=== PATIENT | female | born 1995 | race Caucasian/White ===

== ENCOUNTER 2019-01-06 16:06 | Emergency (ER) | payer OTHER ==
--- NOTE | 2019-01-06 16:20 | PDOC ---
Rapid Medical Evaluation Chief Complaint: Back Pain Time Seen by Provider: 01/06/19 16:17 Medical Evaluation: Allergies Allergy/AdvReac Type Severity Reaction Status Date / Time No Known Allergies Allergy Verified 02/17/16 01:13 01/06/19 16:17 I have performed a brief in-person evaluation of this patient. The patient presents with a chief complaint of: back pain since last night, hx of R renal stone Pertinent physical exam findings:nad I have ordered the following:u preg, CBC, CMP, UA and cx US The patient will proceed to the ED for further evaluation. 01/06/19 16:20 Discharge Disposition - Diagnosis Back pain - Referrals - Patient Instructions - Post Discharge Activity
[2019-01-06 16:30] VITALS: BP 121/64; PULSE 82; TEMP 99; BMI 29.6
[2019-01-06 16:43] LABS: BASO % 0.3 % (0-2.0); EOS % 2.7 % (0-4.5); HEMATOCRIT 39.2 % (32.4-45.2); LYMPH % 37.2 % (8-40); MCH 27.4 pg (25.7-33.7); MCHC 33.2 g/dl (32.0-36.0); MEAN CELL VOLUME 82.5 fl (80-96); MEAN PLT VOLUME 7.7 fl (7.5-11.1); MONO % 7.3 % (3.8-10.2); NEUT % 52.5 % (42.8-82.8); PLATELET COUNT 270 K/MM3 (134-434); RBC 4.75 M/mm3 (3.60-5.2); RDW 14.4 % (11.6-15.6); WHITE BLOOD COUNT 8.5 K/mm3 (4.0-10.0)
[2019-01-06 17:02] LABS: HCG,QUALITATIVE URINE Negative
[2019-01-06 17:11] LABS: ALBUMIN 3.7 g/dl (3.4-5.0); ALK PHOS 60 U/L (45-117); ANION GAP 6 MMOL/L (8-16); BILIRUBIN,TOTAL 0.2 mg/dL (0.2-1); BLOOD UREA NITROGEN 13 mg/dL (7-18); CHLORIDE 106 mmol/L (98-107); CO2 28 mmol/L (21-32); CREATININE 0.6 mg/dL (0.55-1.3); GLUCOSE,RANDOM 101 mg/dL (74-106); POTASSIUM 3.9 mmol/L (3.5-5.1); SGOT/AST 19 U/L (15-37); SGPT/ALT 25 U/L (13-61); SODIUM 140 mmol/L (136-145)
[2019-01-06] MEDS ORDERED: KETOROLAC TROMETHAMINE 30 MG/1 ML VIAL IVPUSH ONE (17:31)
[2019-01-06 17:35] LABS: URINE APPEARANCE CLEAR; URINE BILIRUBIN NEGATIVE (NEGATIVE); URINE COLOR YELLOW; URINE GLUCOSE (UA) NEGATIVE (NEGATIVE); URINE KETONE NEGATIVE (NEGATIVE); URINE LEUK ESTERASE NEGATIVE (NEGATIVE); URINE NITRITE NEGATIVE (NEGATIVE); URINE PROTEIN NEGATIVE (NEGATIVE); URINE UROBILINOGEN 0.2 mg/dL (0.2-1.0)
[2019-01-06] MEDS ORDERED: KETOROLAC TROMETHAMINE 30 MG/1 ML VIAL ONE (17:36)
--- NOTE | 2019-01-06 17:37 | PDOC ---
History of Present Illness - General Chief Complaint: Back Pain Stated Complaint: LOWER BACK PAIN Time Seen by Provider: 01/06/19 16:17 History Source: Patient - History of Present Illness Severity: moderate Associated Symptoms: denies: fever/chills, nausea/vomiting Past History - Past Medical History Allergies/Adverse Reactions: Allergies Allergy/AdvReac Type Severity Reaction Status Date / Time No Known Allergies Allergy Verified 02/17/16 01:13 Home Medications: Ambulatory Orders Ferrous Sulfate 325 mg PO DAILY 02/17/16 Vitamins (Sjr) - 1 tab PO DAILY 02/17/16 Cyclobenzaprine HCl [Flexeril 10 mg] 10 mg PO TID #9 tablet 01/06/19 Ibuprofen [Motrin -] 800 mg PO Q6H #30 tablet 01/06/19 Asthma: No Cancer: No Cardiac Disorders: No COPD: No Diabetes: No HTN: No Seizures: No Thyroid Disease: No - Suicide/Smoking/Psychosocial Hx Smoking History: Never smoked Have you smoked in the past 12 months: No Information on smoking cessation initiated: No Hx Alcohol Use: No Drug/Substance Use Hx: No Substance Use Type: None Hx Substance Use Treatment: No Review of Systems - Review of Systems Constitutional: No: Chills, Fever ABD/GI: No: Constipated, Diarrhea, Nausea, Vomiting, Abdominal cramping : Yes: Flank Pain. No: Dysuria, Hematuria Musculoskeletal: Yes: Back Pain Neurological: No: Numbness, Tingling, Weakness *Physical Exam - Vital Signs Last Vital Signs Temp Pulse Resp BP Pulse Ox 99.0 F 82 18 121/64 100 01/06/19 16:19 01/06/19 16:19 01/06/19 16:19 01/06/19 16:19 01/06/19 16:19 - Physical Exam General Appearance: Yes: Appropriately Dressed. No: Apparent Distress HEENT: positive: Normal Voice Neck: positive: Supple Respiratory/Chest: negative: Respiratory Distress Gastrointestinal/Abdominal: positive: Normal Bowel Sounds, Soft. negative: Tender, Distended, Guarding, Rebound Musculoskeletal: positive: Vertebral Tenderness (to mid and R lower back). negative: CVA Tenderness Integumentary: positive: Dry, Warm Neurologic: positive: Fully Oriented, Alert, Normal Mood/Affect ED Treatment Course - LABORATORY CBC & Chemistry Diagram: 01/06/19 16:32 01/06/19 16:32 - ADDITIONAL ORDERS Additional order review: Laboratory Results 01/06/19 01/06/19 16:32 16:30 Sodium 140 Potassium 3.9 Chloride 106 Carbon Dioxide 28 Anion Gap 6 L BUN 13 Creatinine 0.6 Creat Clearance w eGFR 122.82 Random Glucose 101 Calcium 9.0 Total Bilirubin 0.2 AST 19 ALT 25 Alkaline Phosphatase 60 Total Protein 7.0 Albumin 3.7 Urine HCG, Qual Negative 01/06/19 16:32 RBC 4.75 MCV 82.5 MCHC 33.2 RDW 14.4 MPV 7.7 Neutrophils % 52.5 D Lymphocytes % 37.2 D Monocytes % 7.3 Eosinophils % 2.7 D Basophils % 0.3 - RADIOLOGY Radiology Studies Ordered: Category Date Time Status ABDOMEN & PELVIS CT W/O CONTR [CT] Stat CT Scan 01/06/19 17:31 Ordered Medical Decision Making - Medical Decision Making 01/06/19 17:32 23 yo F, h/o chronic lower back pain, s/p PT in the past, states she was told pain was "muscular" then, no spinal imaging in past, here with mid lower back pain radiating to R flank that started today while in the shower. Pain sharp, constant and possibly worse w/ movement. Has not taken anything for pain. Patient states this is different from her usual back pain. No recent trauma. No nausea, vomiting, fever, chills, dysuria or hematuria. Denies any abdominal pain. Patient states she was told in the past that she had kidney stones on an ultrasound, but has never had to go to the ER for renal colic see exam Renal colic vs m/l MSK pain -pain control -labs -CT -reassess 01/06/19 17:36 01/06/19 18:26 Labs wnl. US read as no e/o stone or other abnl. Pain improved w/ meds. Dc w/ pain control and PMD f/u 04 *DC/Admit/Observation/Transfer Diagnosis at time of Disposition: Back pain Qualifiers: Back pain location: low back pain Chronicity: acute Back pain laterality: unspecified Sciatica presence: without sciatica Qualified Code(s): M54.5 - Low back pain - Discharge Dispostion Disposition: HOME Condition at time of disposition: Improved - Prescriptions Prescriptions: Cyclobenzaprine HCl [Flexeril 10 mg] 10 mg PO TID #9 tablet Ibuprofen [Motrin -] 800 mg PO Q6H #30 tablet - Referrals - Patient Instructions Printed Discharge Instructions: DI for Low Back Pain Additional Instructions: Take medications as prescribed and follow-up with your PMD for further evaluation of your back pain - Post Discharge Activity Forms/Work/School Notes: Back to Work
[2019-01-06] MEDS ORDERED: ACETAMINOPHEN 1000 MG/100 ML VIAL (NON FORMULARY) IVPB ONE (18:12)
[2019-01-06] MEDS ORDERED: ACETAMINOPHEN INJECTION 100 ML IVPB ONE (18:19)
== END 2019-01-06 18:38 | disposition home or self-care (01) ==
LOC: JER 16:06
PROC: 3E033NZ Introduction of Analgesics, Hypnotics, Sedatives into Peripheral Vein, Percutaneous Approach (ICD-10-PCS; principal; 2019-01-06)
PROC: 3E0333Z Introduction of Anti-inflammatory into Peripheral Vein, Percutaneous Approach (ICD-10-PCS; 2019-01-06)
DX: M54.5 Low back pain (principal); G89.29 Other chronic pain
CPT/HCPCS: 36415; 76775-TC; 80053; 81003; 84703; 85025; 87086; 99283-25; J0131

== ENCOUNTER 2019-12-29 09:56 | Day surgery (SDC) | payer OTHER ==
[2019-12-29] MEDS ORDERED: ONDANSETRON 4 MG/2 ML VIAL IVPUSH ONE (10:49)
[2019-12-29] MEDS ORDERED: ONDANSETRON 4 MG/2 ML VIAL ONE ×3 (11:00→18:17)
[2019-12-29 11:41] LABS: BASO % 0.1 % (0-2.0); HEMATOCRIT 40.4 % (32.4-45.2); HEMOGLOBIN 13.6 GM/dL (10.7-15.3); LYMPH % 7.4 % (8-40); MCH 27.7 pg (25.7-33.7); MCHC 33.7 g/dl (32.0-36.0); MEAN CELL VOLUME 82.3 fl (80-96); MEAN PLT VOLUME 7.9 fl (7.5-11.1); NEUT % 89.5 % (42.8-82.8); PLATELET COUNT 265 K/MM3 (134-434); RBC 4.91 M/mm3 (3.60-5.2); RDW 13.9 % (11.6-15.6); WHITE BLOOD COUNT 15.4 K/mm3 (4.0-10.0)
[2019-12-29 11:43] LABS: PH,URINE 6.5 (5.0-8.0); URINE APPEARANCE CLOUDY; URINE BILIRUBIN NEGATIVE (NEGATIVE); URINE COLOR YELLOW; URINE GLUCOSE (UA) NEGATIVE (NEGATIVE); URINE KETONE TRACE (NEGATIVE); URINE LEUK ESTERASE NEGATIVE (NEGATIVE); URINE NITRITE NEGATIVE (NEGATIVE); URINE PROTEIN TRACE (NEGATIVE); URINE UROBILINOGEN 0.2 mg/dL (0.2-1.0)
[2019-12-29 11:46] LABS: HCG,QUALITATIVE URINE Negative
--- NOTE | 2019-12-29 12:11 | PDOC ---
History of Present Illness - General Chief Complaint: Nausea/Vomiting Stated Complaint: LOWER ABD PAIN Time Seen by Provider: 12/29/19 10:12 - History of Present Illness Initial Comments: 12/29/19 11:32 CHIEF COMPLAINT: abdominal pain, vomiting HISTORY OF PRESENT ILLNESS: 24 yo F with no PMH presents to ED with vomiting and abdominal pain since yesterday. Patient reports persistent vomiting and "feels dehydrated." She denies any fever, cough, SOB, or other URI symptoms. Patient denies any travel, recent sick contacts. LMP "about a month ago, it should be coming soon." No recent travel or sick contacts. PAST MEDICAL HISTORY: Denies past medical history FAMILY HISTORY: Denies SOCIAL HISTORY:Denies tobacco, alcohol, illicit drug use. SURGICAL HISTORY: Denies ALLERGIES: No known drug allergies REVIEW OF SYSTEMS General/Constitutional: Denies fever or chills. Denies weakness, weight change. HEENT: Denies change in vision. Denies ear pain or discharge. Denies sore throat. Cardiovascular: Denies chest pain or shortness of breath. Respiratory: Denies cough, wheezing, or hemoptysis. Gastrointestinal: Vomiting and abdominal pain since last night. Denies rectal bleeding. Genitourinary: Denies dysuria, frequency, or change in urination. Musculoskeletal: Denies joint or muscle swelling or pain. Denies neck or back pain. Skin and breasts: Denies rash or easy bruising. Neurologic: Denies headache, vertigo, loss of consciousness, or loss of sen sation. Psychiatric: Denies depression or anxiety. PHYSICAL EXAM General Appearance: Well-appearing, appropriately dressed. No apparent distress, no intoxication. HEENT: EOMI, PERRLA, normal ENT inspection, normal voice, TMs normal, pharynx normal. No conjunctival pallor. No photophobia, scleral icterus. Neck: Supple. Trachea midline. No tenderness, rigidity, carotid bruit, stridor, lymphadenopathy, or thyromegaly. Respiratory/Chest: Lungs CTAB. No shortness of breath, chest tenderness, respiratory distress, accessory muscle use. No crackles, rales, rhonchi, stridor, wheezing, dullness Cardiovascular: RRR. S1, S2. No JVD, murmur, bradycardia, tachycardia. Vascular Pulses: Dorsalis-Pedis (R): 2+, Dorsalis-Pedis (L): 2+ Gastrointestinal/Abdominal: Diffuse abdominal tenderness, more localized to epigastrum. Normal bowel sounds. Abdomen soft, non-distended. No tenderness or rebound tenderness. No organomegaly, pulsatile mass, guarding, hernia, hepatomegaly, splenomegaly. Lymphatic: No adenopathy, tenderness. Musculoskeletal/Extremities: Normal inspection. FROM of all extremities, normal capillary refill. Pelvis Stable. No CVA tenderness. No tenderness to extremities, pedal edema, swelling, erythema or deformity. Integumentary: Appropriate color, dry, warm. No cyanosis, erythema, jaundice or rash Neurologic: bindery chief II-XII intact. Fully oriented, alert. Appropriate mood/affect. Motor strength 5/5. No appreciable EOM palsy, facial droop or sensory deficit. 12/29/19 14:44 Past History - Past Medical History Allergies/Adverse Reactions: Allergies Allergy/AdvReac Type Severity Reaction Status Date / Time No Known Allergies Allergy Verified 12/29/19 10:00 Home Medications: Ambulatory Orders NK [No Known Home Medication] 12/29/19 Asthma: No Cancer: No Cardiac Disorders: No COPD: No Diabetes: No HTN: No Seizures: No Thyroid Disease: No - Immunization History Immunization Up to Date: Yes - Psycho Social/Smoking Cessation Hx Smoking History: Never smoked Have you smoked in the past 12 months: No Information on smoking cessation initiated: No Hx Alcohol Use: No Drug/Substance Use Hx: No Substance Use Type: None Hx Substance Use Treatment: No *Physical Exam - Vital Signs Last Vital Signs Temp Pulse Resp BP Pulse Ox 97.9 F 72 19 120/72 99 12/29/19 09:58 12/29/19 09:58 12/29/19 09:58 12/29/19 09:58 12/29/19 09:58 ED Treatment Course - LABORATORY CBC & Chemistry Diagram: 12/29/19 11:05 12/29/19 11:05 - Medications Given in the ED: ED Medications Discontinued Medications Generic Name Dose Route Start Last Admin Trade Name Freq PRN Reason Stop Dose Admin Ondansetron HCl 4 mg 12/29/19 10:49 12/29/19 11:17 Zofran Injection IVPUSH 12/29/19 10:50 4 mg ONCE ONE Administration Medical Decision Making - Medical Decision Making 12/29/19 12:11 24 yo F with no PMH presents to ED with vomiting and abdominal pain since yesterday. -labs -zofran, IVF -CTAP 12/29/19 13:27 CTAP reveals acute appendicitis; pt also with left gonadal vein nonocclusive thrombosis. Spoke with surgeon Dr. Viera, patient to be admitted for appendectomy today. Patient will require anticoagulation post-op for gonadal vein thrombosis Spoke with PCP Josie to ensure patient has f/u post op, PCP states offices are open during COVID crisis and she will f/u with patient to ensure proper therapy. Discharge - Discharge Information Problems reviewed: Yes Clinical Impression/Diagnosis: Thrombosis of vein Appendicitis Qualifiers: Appendicitis type: acute appendicitis Acute appendicitis type: with localized peritonitis Appendicitis gangrene presence: without gangrene Appendicitis perforation presence: without perforation Appendicitis abscess presence: without abscess Qualified Code(s): K35.30 - Acute appendicitis with localized peritonitis, without perforation or gangrene - Admission Yes - Follow up/Referral - Patient Discharge Instructions - Post Discharge Activity
[2019-12-29 12:31] LABS: ALBUMIN 3.8 g/dl (3.4-5.0); BILIRUBIN,TOTAL 0.6 mg/dL (0.2-1); BLOOD UREA NITROGEN 12.2 mg/dL (7-18); CALCIUM 9.2 mg/dL (8.5-10.1); CREATININE 0.6 mg/dL (0.55-1.3); TOT PROT 7.4 g/dl (6.4-8.2)
[2019-12-29] MEDS ORDERED: KETOROLAC TROMETHAMINE 30 MG/1 ML VIAL IVPUSH ONE (13:04)
[2019-12-29] MEDS ORDERED: KETOROLAC TROMETHAMINE 30 MG/1 ML VIAL ONE ×2 (13:06→16:16)
--- NOTE | 2019-12-29 14:24 | PDOC ---
*Physical Exam - Vital Signs Last Vital Signs Temp Pulse Resp BP Pulse Ox 97.9 F 72 19 120/72 99 12/29/19 09:58 12/29/19 09:58 12/29/19 09:58 12/29/19 09:58 12/29/19 09:58 - Physical Exam 12/29/19 14:24 The patient was examined by [KALI dow] under my direct supervision. I personally evaluated the patient. I concur with the above findings and the plan of care. ED Treatment Course - LABORATORY CBC & Chemistry Diagram: 12/29/19 11:05 12/29/19 11:05 - ADDITIONAL ORDERS Additional order review: Laboratory Results 12/29/19 12/29/19 11:05 11:05 Sodium 139 Potassium 4.0 Chloride 106 Carbon Dioxide 27 Anion Gap 7 L BUN 12.2 Creatinine 0.6 Est GFR (CKD-EPI)AfAm 146.83 Est GFR (CKD-EPI)NonAf 126.68 Random Glucose 118 H Calcium 9.2 Total Bilirubin 0.6 AST 21 ALT 40 Alkaline Phosphatase 71 Total Protein 7.4 Albumin 3.8 Lipase 72 L Urine Color Yellow Urine Appearance Cloudy Urine pH 6.5 D Ur Specific [place] 1.028 Urine Protein Trace Urine Glucose (UA) Negative Urine Ketones Trace H Urine Blood Negative Urine Nitrite Negative Urine Bilirubin Negative Urine Urobilinogen 0.2 Ur Leukocyte Esterase Negative Urine HCG, Qual Negative 12/29/19 11:05 RBC 4.91 MCV 82.3 MCHC 33.7 RDW 13.9 MPV 7.9 Neutrophils % 89.5 H D Lymphocytes % 7.4 L D Monocytes % 3.0 L Eosinophils % 0.0 D Basophils % 0.1 - Medications Given in the ED: ED Medications Discontinued Medications Generic Name Dose Route Start Last Admin Trade Name Freq PRN Reason Stop Dose Admin Ketorolac Tromethamine 30 mg 12/29/19 13:04 12/29/19 13:10 Toradol Injection - IVPUSH 12/29/19 13:05 30 mg ONCE ONE Administration Ondansetron HCl 4 mg 12/29/19 10:49 12/29/19 11:17 Zofran Injection IVPUSH 12/29/19 10:50 4 mg ONCE ONE Administration Discharge - Discharge Information Problems reviewed: Yes Clinical Impression/Diagnosis: Thrombosis of vein Appendicitis Qualifiers: Appendicitis type: acute appendicitis Acute appendicitis type: with localized peritonitis Appendicitis gangrene presence: without gangrene Appendicitis perforation presence: without perforation Appendicitis abscess presence: without abscess Qualified Code(s): K35.30 - Acute appendicitis with localized peritonitis, without perforation or gangrene - Follow up/Referral - Patient Discharge Instructions - Post Discharge Activity
[2019-12-29] MEDS ORDERED: PIPERACILLIN/TAZOB 4.5 GM 4.5 GM in DEXTROSE 5%-WATER 100 ML IVPB ONE (14:39)
[2019-12-29] MEDS ORDERED: LACTATED RINGERS SOLUTION 1,000 ML/1,000 ML INFUS.BAG IV SCH ×2 (14:45→19:22)
[2019-12-29] MEDS ORDERED: PIPERACILLIN/TAZOB 4.5 GM 4.5 GM/100 ML BAG IVPB ONE (14:53)
[2019-12-29] MEDS ORDERED: PROPOFOL 20 ML ONE (16:15)
[2019-12-29] MEDS ORDERED: DEXAMETHASONE SOD PHOSPHATE 4 MG/1 ML VIAL ONE (16:16)
[2019-12-29] MEDS ORDERED: ROCURONIUM BROMIDE 50 MG/5 ML SYRINGE ONE (16:16)
[2019-12-29] MEDS ORDERED: MIDAZOLAM HCL 2 MG/2 ML SINGLE DOSE VIAL ONE (16:16)
[2019-12-29] MEDS ORDERED: LIDOCAINE HCL/PF 2% SDV 5ML VIAL ONE (16:16)
--- NOTE | 2019-12-29 16:17 | HP ---
Admitting History and Physical - Primary Care Physician PCP: Hollie Galindo - Admission Chief Complaint: epigastric and RLQ pain, N/V History of Present Illness: 24yo F with no sig PMH presented with epigastric pain beginning around 3pm yesterday after normal breakfast and lunch, though she hadn't been very hungry. Had coffee with bread and butter earlier in the day, a banana around 5pm, but later had RLQ pain/tenderness radiating to rest of abdomen as well, and multiple episodes of N/V. Overnight, she had alternating cold and hot feelings several t imes, and vomiting. By this morning, she felt a bit weak and dehydrated, with some minor urinary discomfort. Last normal, soft formed BM was yesterday, no diarrhea. Prior to this, she has not been otherwise feeling ill, no cough or cold, no fevers, no sick contacts, and 4yo daughter are well. In ER, she is somewhat dehydrated by labs, wbc 15, afebrile, and CT shows acute appendicitis without evidence of rupture, as well as left gonadal vein nonocclusive thrombosis. She has been given Zofran, Toradol, Zosyn and fluids, and is feeling better, though shearing machine tender in the RLQ. She is seen and examined in the ER. ER spoke with her PCP Dr. Galindo, who will follow her up to address the clot with anticoagulation, as well as a referral to hematology. History Source: Patient Limitations to Obtaining History: No Limitations - Past Medical History Cardiovascular: Yes: Other (valvular regurg - not sure which one, mild; tends to have low blood pressure) ...: No - Past Surgical History Past Surgical History: Yes: Tonsillectomy - Smoking History Smoking history: Never smoked Have you smoked in the past 12 months: No - Alcohol/Substance Use Hx Alcohol Use: Yes (occasional) History of Substance Use: reports: None - Social History Usual Living Arrangement: Yes: With Spouse ADL: Independent Occupation: [employer] home [employer], not currently working Home Medications - Allergies Allergies/Adverse Reactions: Allergies Allergy/AdvReac Type Severity Reaction Status Date / Time No Known Allergies Allergy Verified 12/29/19 10:00 - Home Medications Home Medications: Ambulatory Orders NK [No Known Home Medication] 12/29/19 Family Medical History Other Family History: mother with HTN, father with low blood pressure Review of Systems - Review of Systems Constitutional: reports: Chills, Fever (feeling hot and cold overnight, with hpi), Loss of Appetite Eyes: denies: Blurred Vision, Recent Change in Vision HENT: denies: Difficult Swallowing, Nasal Congestion, Throat Pain Neck: denies: Swollen Glands, Tenderness Cardiovascular: denies: Chest Pain, Palpitations Respiratory: denies: Cough, SOB Gastrointestinal: reports: Abdominal Pain (with hpi), Nausea (with hpi), Vomiting (with hpi). denies: Constipation, Diarrhea Genitourinary: reports: Dysuria (mild, today only, thought related to dehydration). denies: Burning Musculoskeletal: denies: Back Pain, Joint Pain, Muscle Pain Integumentary: denies: Change in Color, Rash Neurological: reports: Headache (when weather changes). denies: Dizziness Psychiatric: denies: Anxiety, Depression Physical Examination Vital Signs: Vital Signs Temperature 98.2 F 12/29/19 15:08 Pulse Rate 85 12/29/19 15:08 Respiratory Rate 18 12/29/19 15:08 Blood Pressure 107/72 12/29/19 15:08 O2 Sat by Pulse Oximetry (%) 100 12/29/19 15:08 Constitutional: Yes: No Distress, Calm, Obese Eyes: Yes: Conjunctiva Clear, EOM Intact HENT: Yes: Atraumatic, Normocephalic Neck: Yes: Supple, Trachea Midline Cardiovascular: Yes: Regular Rate and Rhythm Respiratory: Yes: Regular, CTA Bilaterally Gastrointestinal: Yes: Soft, Abdomen, Obese, Hypoactive Bowel Sounds, Tenderness (RLQ with referral to RLQ from left side and suprapubic, focal rebound but no guarding) ...Rectal Exam: Yes: Deferred Renal/: No: CVA Tenderness - Left, CVA Tenderness - Right Musculoskeletal: No: Back Pain, Joint Stiffness, Joint Swelling Extremities: No: Cool, Cyanosis Edema: No Peripheral Pulses WNL: Yes Integumentary: No: Jaundice, Rash Neurological: Yes: Alert, Oriented. No: Unsteady Gait Psychiatric: Yes: Alert, Oriented Labs: CBC, BMP 12/29/19 11:05 12/29/19 11:05 CMP Sodium 139 mmol/L (136-145) 12/29/19 11:05 Potassium 4.0 mmol/L (3.5-5.1) 12/29/19 11:05 Chloride 106 mmol/L (98-107) 12/29/19 11:05 Carbon Dioxide 27 mmol/L (21-32) 12/29/19 11:05 Anion Gap 7 MMOL/L (8-16) L 12/29/19 11:05 BUN 12.2 mg/dL (7-18) 12/29/19 11:05 Creatinine 0.6 mg/dL (0.55-1.3) 12/29/19 11:05 Est GFR (CKD-EPI)AfAm 146.83 12/29/19 11:05 Est GFR (CKD-EPI)NonAf 126.68 12/29/19 11:05 Random Glucose 118 mg/dL (74-106) H 12/29/19 11:05 Calcium 9.2 mg/dL (8.5-10.1) 12/29/19 11:05 Total Bilirubin 0.6 mg/dL (0.2-1) 12/29/19 11:05 AST 21 U/L (15-37) 12/29/19 11:05 ALT 40 U/L (13-61) 12/29/19 11:05 Alkaline Phosphatase 71 U/L (45-117) 12/29/19 11:05 Total Protein 7.4 g/dl (6.4-8.2) 12/29/19 11:05 Albumin 3.8 g/dl (3.4-5.0) 12/29/19 11:05 Lipase 72 U/L (73-393) L 12/29/19 11:05 Urine Test Results Urine Color Yellow 12/29/19 11:05 Urine Appearance Cloudy 12/29/19 11:05 Urine pH 6.5 (5.0-8.0) D 12/29/19 11:05 Ur Specific [place] 1.028 (1.010-1.035) 12/29/19 11:05 Urine Protein Trace (NEGATIVE) 12/29/19 11:05 Urine Glucose (UA) Negative (NEGATIVE) 12/29/19 11:05 Urine Ketones Trace (NEGATIVE) H 12/29/19 11:05 Urine Blood Negative (NEGATIVE) 12/29/19 11:05 Urine Nitrite Negative (NEGATIVE) 12/29/19 11:05 Urine Bilirubin Negative (NEGATIVE) 03/25/20 11:05 Ur Leukocyte Esterase Negative (NEGATIVE) 12/29/19 11:05 Imaging - Results Cat Scan: Report Reviewed (also mildly dilated L gonadal vein with nonocclusive filling defects, 1.7cm right ovarian cyst), Image Reviewed (appendix enlarged, inflamed in RLQ, no obstruction, no free air) Problem List - Problems (1) Acute appendicitis with localized peritonitis, without perforation, abscess, or gangrene Assessment/Plan: admit to surgery 23H/satellite NPO until postop periop antibiotics pain meds prn - nonnarcotics first line pt with DVT gonadal vein - no SCD's, + early ambulation will plan for full anticoagulation to start within days of surgery Discussed with patient risks, benefits and alternatives of laparoscopic possible open appendectomy, including but not limited to bleeding, infection, injury to adjacent structures, intestinal leak or injury, intraabdominal abscess, incisional hernia, need for further procedures; alternatives include antibiotics, delayed or no surgery - risks of this include failure of nonoperative therapy, perforation, sepsis, recurrence. Patient desires to proceed with operation - will take to OR for above. Informed consent signed for same. Code(s): K35.30 - ACUTE APPENDICITIS WITH LOC PERITONITIS, W/O PERF OR GANGR (2) RLQ abdominal pain Code(s): R10.31 - RIGHT LOWER QUADRANT PAIN (3) Epigastric abdominal pain Code(s): R10.13 - EPIGASTRIC PAIN (4) Nausea and vomiting Code(s): R11.2 - NAUSEA WITH VOMITING, UNSPECIFIED Qualifiers: Vomiting type: unspecified Vomiting Intractability: non-intractable Qualified Code(s): R11.2 - Nausea with vomiting, unspecified (5) Deep venous thrombosis of pelvic vein Assessment/Plan: left gonadal vein to follow up with PCP and hematology Code(s): I82.90 - ACUTE EMBOLISM AND THROMBOSIS OF UNSPECIFIED VEIN (6) Class 1 obesity due to excess calories with body mass index (BMI) of 34.0 to 34.9 in adult Code(s): E66.09 - OTHER OBESITY DUE TO EXCESS CALORIES; Z68.34 - BODY MASS INDEX (BMI) 34.0-34.9, ADULT
[2019-12-29] MEDS ORDERED: ceFAZolin SODIUM 1 GM VIAL IVPB ONE (17:03)
[2019-12-29] MEDS ORDERED: ceFAZolin SODIUM 1 GM VIAL ONE (17:09)
[2019-12-29 17:22] LABS: INR 1.07 (0.83-1.09); PROTHROMBIN TIME (PATIENT) 12.6 SEC (9.7-13.0)
[2019-12-29] MEDS ORDERED: EPHEDRINE SULFATE/0.9% NACL/PF 50 MG/10 ML SYRINGE NR ONE (17:22)
[2019-12-29 17:25] LABS: ACTIVATED PTT 28.3 SECONDS (25.2-36.5)
[2019-12-29] MEDS ORDERED: GLYCOPYRROLATE 0.2 MG/1 ML VIAL ONE (17:29)
[2019-12-29] MEDS ORDERED: NEOSTIGMINE METHYLSULFATE 0.5 MG/1 ML - 10 ML MDV ONE (18:16)
[2019-12-29] MEDS ORDERED: BENZOIN/ALOE VERA/STORAX/TOLU 58 ML BOTTLE ONE (18:25)
--- NOTE | 2019-12-29 18:44 | OP ---
Operative Note - Note: Operative Date: 12/29/19 Pre-Operative Diagnosis: acute appendicitis with localized peritonitis Operation: laparoscopic appendectomy Findings: enlarged, inflamed, curled appendix; pelvic fluid suctioned Post-Operative Diagnosis: Same as Pre-op Surgeon: Juancarlos Viera Anesthesiologist/SERVICE SUPPORT REPRESENTATIVE: [place] (vazquez/Saniya) Anesthesia: General, Local (10ml 0.5% marcaine) Specimens Removed: appendix to pathology Estimated Blood Loss (mls): 5 Drains & Tubes with Location: [place] out at end of case Drains, Volume Out (mls): 200 (UOP) Fluid Volume Replaced (mls): 1,300 (crystalloid) Operative Report Dictated: Yes
[2019-12-29] MEDS ORDERED: ONDANSETRON 4 MG/2 ML VIAL IVPUSH PRN ×2 (18:48→19:22)
[2019-12-29] MEDS ORDERED: LACTATED RINGERS SOLUTION 1,000 ML IV SCH (19:00)
--- NOTE | 2019-12-29 20:30 | OP ---
DATE OF OPERATION: 12/29/2019 PREOPERATIVE DIAGNOSIS: Acute appendicitis with localized peritonitis. POSTOPERATIVE DIAGNOSIS: Acute appendicitis with localized peritonitis. PROCEDURE: Laparoscopic appendectomy. SURGEON: Juancarlos Viera MD ANESTHESIA: General endotracheal and local, 10 mL of 0.5% Marcaine. ESTIMATED BLOOD LOSS: 5 mL. FLUIDS: Crystalloid 1300 mL. URINE OUTPUT 200 mL (Morales out at case end). SPECIMEN: Appendix to Pathology. FINDINGS: Enlarged, inflamed, curled appendix, and pelvic fluid suctioned. DISPOSITION: Stable and extubated to PACU. INDICATIONS FOR PROCEDURE: The patient is a 24-year-old Sami female with no significant past medical history, who presented with epigastric pain beginning approximately 24 hours prior, associated with decreased appetite yesterday, although she did eat breakfast and lunch, and subsequent exacerbation of the pain toward the right lower quadrant, with tenderness radiating to the rest of her abdomen from the right lower quadrant, and multiple episodes of nausea and vomiting. She also had some subjective cold and hot feelings overnight. Prior to this, she had not been feeling otherwise ill - no cough, cold, no fever, no sick contacts. In the emergency room, she was mildly dehydrated with a white count of 15,000, afebrile, and the CT showed acute appendicitis, as well as incidental left gonadal vein nonocclusive thrombosis. She was given fluids, Toradol, antiemetic and antibiotics, and examination was consistent with right lower quadrant tenderness with focal rebound. Risks, benefits and alternatives of laparoscopic, possible open, appendectomy were discussed with the patient including, but not limited to bleeding, infection, injury to adjacent structures, intestinal leak or injury, intraabdominal abscess, incisional hernia, need for further procedures and alternatives, including antibiotics with delayed or no surgery and consequent risks of failure of nonoperative therapy, perforation, sepsis and recurrence. The patient desired to proceed with the operation, signed informed consent for the same and is now brought to the OR for this procedure. OPERATIVE TECHNIQUE: The patient was brought to the operating room and laid supine on the operating table. Sequential compression devices were not used during this case because of her known DVT. Ancef 2 g was given as preoperative antibiotic, as she has had 4.5 g Zosyn in the emergency room approximately 1 hour prior. After induction and intubation by Anesthesia, a Morales catheter was placed in the patient's bladder, which was removed at the end of the case. Lower abdominal hair was clipped, and her lower abdomen prepped and draped in sterile fashion. A small supraumbilical midline incision was made with a scalpel and carried into the subcutaneous tissues with electrocautery, until the abdominal wall fascia was identified, scored and elevated with Stanislav clamps. The peritoneum was entered bluntly with the tip of a clamp, and a fingertip inserted to ensure entry into the abdominal cavity and the absence of any underlying adhesions. A stay suture of 0-Vicryl was placed in the fascia for later closure in [id number] fashion, and a Kody trocar introduced directly into the abdominal cavity and secured in place with the balloon. The abdomen was insufflated with carbon dioxide, and the patient was placed in Trendelenburg position. Two additional 5-mm ports were placed under direct vision in the left lower quadrant and suprapubic areas, and the camera moved to the left lower quadrant port. Two graspers were introduced and used to gently manipulate the omentum and small bowel medially away from the right lower quadrant, revealing a large, inflamed appendix which was curled on itself and thinly adherent to an area of the terminal ileum. Some of these thin adhesions were gently and bluntly stretched and with the grasper and Maryland dissector. The appendix was grasped and held up, and the Maryland dissector used to create a window at the base of the appendix where it joined the cecum. The 45 purple load of the Endo-CHRISTOS stapler was then used to transect the appendiceal base at the cecal junction. The staple line had some spots of oozing, which were controlled with cautery attached to the Maryland dissector. The appendix was then re-grasped and held up, and some of the thin adhesions gently stretched away to make sure that the small bowel would not be affected by the staple line. The mesoappendix was also then transected with the 45 white load of the Endo-CHRISTOS stapler. This staple line also had a couple of tiny spots of oozing, which were controlled with the Maryland dissector with electrocautery. The suction synthetic staple extruder was used to suction a little bit of blood and fluid from the operative site and then some fluid that was present in the pelvis. Hemostasis was noted to be complete at the end of the procedure. The appendix was then placed in an EndoCatch bag and drawn up into the Kody trocar. The omentum was returned to the right lower quadrant over the operative area. A thin strand of omentum that had stretched down into the right pelvis near the right ovary was divided distally with the Maryland attached to cautery, to avoid any possible risk of obstruction and herniation because of this long strand that was carried down into the pelvis. The suprapubic port was then removed under direct vision. The appendix in the bag and the Kody trocar were withdrawn en bloc, and the specimen passed off to be sent to Pathology. The camera and left lower quadrant port were withdrawn as well. The abdomen was exsufflated of carbon dioxide. The stay suture at the umbilicus was tied to close the fascia there. Hemostasis was achieved in the port sites with electrocautery where needed. Local anesthetic was infiltrated into all port sites, and skin was closed with 4-0 Vicryl subcuticular suture, including a running at the umbilicus, after a single stitch was taken in the midline dermal tissues to reapproximate the edges and take the tension off the skin stitch. Benzoin and Steri-Strips were applied to each incision, and dressings of gauze and Tegaderm placed over these. Counts were correct at the end of the procedure. The Morales catheter was then removed from the patient's bladder. She was awakened and extubated by Anesthesia, moved back to a stretcher and taken to the recovery room in stable condition, having tolerated the procedure well. Juancarlos Viera M.D. [id number] MTDD
[2019-12-29] MEDS ORDERED: ACETAMINOPHEN 325 MG TABLET (FP) PO SCH (21:00)
[2019-12-29] MEDS: ACETAMINOPHEN 325 MG TABLET (FP) PO SCH (21:23)
[2019-12-29 23:59] VITALS: BMI 36.3
[2019-12-30] MEDS ORDERED: IBUPROFEN 600 MG TABLET (FP) PO SCH
[2019-12-30] MEDS: IBUPROFEN 600 MG TABLET (FP) PO SCH ×3 (00:30→11:23)
[2019-12-30] MEDS: ACETAMINOPHEN 325 MG TABLET (FP) PO SCH ×3 (03:51→14:24)
[2019-12-30 06:24] VITALS: PULSE 61
[2019-12-30 14:19] VITALS: BP 114/59; TEMP 98.3
--- NOTE | 2019-12-30 14:19 | DS ---
Physical Examination Vital Signs: Vital Signs Temperature 98.2 F 12/30/19 06:00 Pulse Rate 61 12/30/19 06:00 Respiratory Rate 18 12/30/19 06:00 Blood Pressure 100/50 L 12/30/19 06:00 O2 Sat by Pulse Oximetry (%) 100 12/30/19 09:00 Findings/Remarks: Pt seen and examined in bed. Feeling better, pain much better than yesterday - well controlled with alternating nonnarcotics. Tolerating diet, ambulated, voided. Still feels a little gassy, has occasional discomfort in epigastric area still. Constitutional: Yes: No Distress, Calm, Obese Eyes: Yes: Conjunctiva Clear, EOM Intact HENT: Yes: Atraumatic, Normocephalic Cardiovascular: Yes: Regular Rate and Rhythm Respiratory: Yes: Regular, CTA Bilaterally Gastrointestinal: Yes: Normal Bowel Sounds, Soft, Abdomen, Obese, Tenderness (mild RLQ, also incisional - mainly umbilical; much less than yesterday/preop). No: Tenderness, Rebound Musculoskeletal: No: Joint Stiffness, Joint Swelling Extremities: No: Calf Tenderness, Cool, Cyanosis Integumentary: Yes: Incision (x3 dressed). No: Rash Wound/Incision: Yes: Steri Strips (under dressings), Dressing Dry and Intact (x3). No: Dressing Removed Neurological: Yes: Alert, Oriented Labs: no new labs Discharge Summary Problems reviewed: Yes Reason For Visit: APPENDICITIS Current Active Problems Acute appendicitis with localized peritonitis, without perforation, abscess, or gangrene (Acute) Class 1 obesity due to excess calories with body mass index (BMI) of 34.0 to 34.9 in adult (Acute) Deep venous thrombosis of pelvic vein (Acute) Epigastric abdominal pain (Acute) Nausea and vomiting (Acute) RLQ abdominal pain (Acute) Procedures: Principal: laparoscopic appendectomy Hospital Course: 24yo [place] F with no significant PMH presented with less than 24 hours of epigastric pain and developing RLQ pain and tenderness with radiation to whole abdomen, associated with N/V and subjective hot/cold feelings but no damien fevers. She had WBC 15 in ER, and CT showed acute appendicitis and nonocclusive left gonadal vein thrombosis. She was taken for uneventful laparoscopic appendectomy and given perioperative antibiotics only. Postop, she has done well, ambulating, voiding and tolerating diet. Pain is well controlled with alternating tylenol and ibuprofen. Incisional dressings are clean, dry and intact. She will be discharged home with lifting restrictions, to followup within next 2 days with PCP (Dr. Galindo) to initiate anticoagulation for the deep vein thrombosis, and for referral to hematology. She will also call for appointment in about 2 weeks with surgeon for followup. She understands to stop all NSAIDs once she starts her blood thinner, and to use acetaminophen as needed for pain from that point on. Time spent on discharge: 40 minutes Health Concerns: left gonadal vein thrombosis (nonocclusive) - needs to follow up with PCP for anticoagulation and referral to hematology ok to start anticoagulation tomorrow/2 days postop or after Plan of Treatment: see above/below f/u with PCP f/u with surgery in about 2 weeks Condition: Good - Instructions Diet, Activity, Other Instructions: Postoperative instructions: You had a laparoscopic appendectomy on 12/29/[address] Juancarlos Viera of [facility], for acute appendicitis. You were also found on CT scan to have likely small blood clots in your left gonadal vein, but the vein is not completely blocked. Activity: Resume your usual activities gradually, but no heavy exertion or lifting more than 10-15 pounds for 1 month. Remove the outer dressings 48 hours after surgery; sticky tapes underneath will fall off by themselves. You may shower daily once the dressings are off, just pat the incision areas dry. No bath or swimming until skin incisions have healed. Eat lightly at first, but advance to your usual diet as tolerated. Pain: For pain, you may use and alternate Tylenol (acetaminophen) 1-2 pills and/or ibuprofen 200 mg (1-3 pills) every 6 hours each as needed; this means that you can take one OR the other at 3-hour intervals. Do not take more than 4000mg of acetaminophen in a day. Take medications as prescribed or indicated on the labeling. Follow-up: Call [phone] to make your postop appointment with Dr. Viera (in approximately 2 weeks after surgery). Clinic is held in the [facility] on the fifth floor of [facility], [facility]. Call Dr. Viera's office at [phone] if you have: * increasing pain not responsive to pain medication * fever of 101F or higher * vomiting * unusual or increasing bleeding or drainage from wounds * increasing redness or swelling at wound sites Also, see your primary medical doctor, Dr. Galindo, as soon as possible. She will need to get you started on an anticoagulant (blood thinner) for your left gonadal vein nonocclusive thrombosis, and refer you to hematology. It will be ok to start an anticoagulant (blood thinner) 48 hours after surgery. When you start taking your blood thinner (Eliquis or other medication), STOP taking ibuprofen, aspirin or naproxen (NSAIDs), and DO NOT take them while using the blood thinner unless instructed by your doctor. You may still use acetaminophen for pain as needed. Dr. Ontiveros is a planning engineer with [facility] - you may call for an appointment with her, or see a planning engineer after discussion with Dr. Galindo. Referrals: Juancarlos Viera MD [Staff Physician] - Hollie Galindo [Primary Care Provider] - Steph Ontiveros MD [Staff Physician] - Disposition: HOME - Home Medications Comprehensive Discharge Medication List: Ambulatory Orders Acetaminophen [Tylenol .Regular Strength -] 650 mg PO Q6H tablet 12/30/19 Ibuprofen [Motrin -] 600 mg PO Q6H tablet 12/30/19
--- NOTE | 2019-12-31 16:23 | PATH ---
Surgical Pathology Report Patient Name: LARA GARCIA [facility]. Rec. #: [id number] /Age/Gender: 1995 (Age: 24) / F Account: [id number] Location: AMBULATORY SURG Taken: 12/29/2019 Received: 12/30/2019 Reported: 12/31/2019 Physicians: Juancarlos Viera M.D. Specimen(s) Received APPENDIX Clinical History Acute appendicitis Final Diagnosis APPENDIX, APPENDECTOMY: ACUTE APPENDICITIS AND PERIAPPENDICITIS. Electronically Signed Catracho Grey M.D. Gross Description Received in formalin, labeled "appendix," is a 10.5 cm. in length vermiform appendix with a stapled margin of resection and moderate attached fat. The serosa is falcon-stallings and smooth. Sectioning reveals a dilated lumen containing pus and fecal material. The wall of the appendix averages 0.1 cm. in thickness. Shiatsu Therapist sections are submitted in one cassette. /12/30/2019 saudi/12/30/2019
== END 2019-12-30 14:39 | disposition home or self-care (01) ==
LOC: JER 09:56 → JASUSAT 14:44 → J8W 20:03 → JASUSAT 12-30 14:39
PROVIDERS: ATTEND Surgery
PROC: 0DTJ4ZZ Resection of Appendix, Percutaneous Endoscopic Approach (ICD-10-PCS; principal; 2019-12-29 15:40)
DX: K35.30 Acute appendicitis with localized peritonitis, without perforation or gangrene (principal)
CPT/HCPCS: 36415; 74177-TC; 80053; 81003; 83690; 84703; 85025; 85610; 85730; 86850; 86900; 86901; 87086; 88304-TC; 94760; 99285-25; Q9967

== ENCOUNTER 2020-12-01 06:28 | Day surgery (SDC) | payer OTHER ==
[2020-11-29 16:38] VITALS: BMI 39.3
[2020-12-01 07:36] VITALS: TEMP 98.9
[2020-12-01 09:09] VITALS: BP 111/73; PULSE 59
== END 2020-12-01 09:09 | disposition home or self-care (01) ==
LOC: JASU-ENDO 06:28
PROVIDERS: ATTEND Internal Medicine Gastroenterology
PROC: 0DB78ZX Excision of Stomach, Pylorus, Via Natural or Artificial Opening Endoscopic, Diagnostic (ICD-10-PCS; 2020-12-01)
PROC: 0DB28ZX Excision of Middle Esophagus, Via Natural or Artificial Opening Endoscopic, Diagnostic (ICD-10-PCS; 2020-12-01)
PROC: 0DB38ZX Excision of Lower Esophagus, Via Natural or Artificial Opening Endoscopic, Diagnostic (ICD-10-PCS; 2020-12-01)
PROC: 0DB98ZX Excision of Duodenum, Via Natural or Artificial Opening Endoscopic, Diagnostic (ICD-10-PCS; principal; 2020-12-01 08:00)
DX: K29.40 Chronic atrophic gastritis without bleeding (principal); K21.00 Gastro-esophageal reflux disease with esophagitis, without bleeding; K29.80 Duodenitis without bleeding
CPT/HCPCS: 81025; 88305-TC; 88342-TC

== ENCOUNTER 2022-07-23 09:20 | Emergency (ER) | payer OTHER ==
[2022-07-23 09:42] VITALS: BP 106/67; PULSE 72; RESP 16; TEMP 98.8; BMI 40.7
[2022-07-23] MEDS ORDERED: SODIUM CHLORIDE 1,000 ML IV STA (09:49)
[2022-07-23 10:31] LABS: HCG,QUALITATIVE URINE Positive
[2022-07-23 10:37] LABS: HEMATOCRIT 34.2 % (32.4-45.2); HEMOGLOBIN 12.3 G/dL (10.7-15.3); MCH 30.4 pg (25.7-33.7); MCHC 36.1 g/dl (32.0-36.0); MEAN CELL VOLUME 84.3 fl (80-96); MEAN PLT VOLUME 7.4 fl (7.5-11.1); PLATELET COUNT 257.7 10^3/uL (134-434); RBC 4.06 10^6/uL (3.60-5.2); RDW 14.4 % (11.6-15.6); WHITE BLOOD COUNT 7.7 10^3/uL (4.0-10.8)
[2022-07-23 10:39] LABS: PLATELET ESTIMATE ADEQUATE
[2022-07-23 10:44] LABS: BILIRUBIN,TOTAL 0.4 mg/dl (0.2-1); CALCIUM 8.5 mg/dl (8.5-10); CREATININE 0.4 mg/dl (0.55-1.3)
[2022-07-23] MEDS ORDERED: LACTATED RINGERS SOLUTION 1000 ML INFUS.BAG IV ONE (11:30)
== END 2022-07-23 12:54 | disposition home or self-care (01) ==
LOC: FER 09:20
DX: R11.2 Nausea with vomiting, unspecified (principal)
CPT/HCPCS: 0241U-QW; 36415; 80053; 81003; 84703; 85027; 99283-25